=== PATIENT | female | born 1960 | race Caucasian/White ===

== ENCOUNTER 2020-05-25 09:05 | Outpatient (CLI) | payer OTHER, SELFPAY | END 2020-05-25 09:06 | disposition home or self-care (01) | LOC: ANHCOVIDVC 09:05 | PROVIDERS: PCP Family Medicine | DX: Z23 Encounter for immunization (principal) | CPT/HCPCS: 0001A; 91300 ==

== ENCOUNTER 2020-06-15 09:01 | Outpatient (CLI) | payer OTHER, SELFPAY | END 2020-06-15 09:02 | disposition home or self-care (01) | LOC: ANHCOVIDVC 09:01 | PROVIDERS: PCP Family Medicine | DX: Z23 Encounter for immunization (principal) | CPT/HCPCS: 0002A; 91300 ==

== ENCOUNTER 2020-08-28 07:12 | Outpatient (CLI) | payer OTHER, SELFPAY ==
[2020-08-28 07:50] LABS: Alanine Aminotransferase 29 U/L (4-35); Alkaline Phosphatase 46 U/L (38-126); Anion Gap 6 mmol/L (8-16); Aspartate Amino Transferase 31 U/L (14-36); Bilirubin,Total 0.4 mg/dL (0.2-1.3); Blood Urea Nitrogen 17 mg/dL (7-17); Calcium 9.1 mg/dL (8.4-10.2); Carbon Dioxide 28 mmol/L (22-30); Chloride 101 mmol/L (98-107); Cholesterol 231 mg/dL (0-200); Estimated Glomerular Filt Rate > 60; Glucose 99 mg/dL (65-105); HDL Direct 82 mg/dL; Potassium 4.2 mmol/L (3.4-5.0); Sodium 135 mmol/L (137-145); Triglycerides 40 mg/dL (<150)
[2020-08-28 08:01] LABS: LDL Cholesterol Direct 97 mg/dL
== END 2020-08-28 07:13 | disposition home or self-care (01) ==
PROVIDERS: PCP Family Medicine; Visit Provider Family Medicine
DX: E78.5 Hyperlipidemia, unspecified (principal)
CPT/HCPCS: 36415; 80053; 80061

== ENCOUNTER 2020-12-14 17:23 | Outpatient (CLI) | payer OTHER, SELFPAY ==
--- NOTE | ~2020-12-14 | XR_ITS ---
XR_CERV2-3V_CR DATE: 12/14/2020 17:41 INDICATION: Neck pain for 3 weeks, radiating to right shoulder. TECHNIQUE: AP, open-mouth, lateral views COMPARISON: None FINDINGS: There is straightening of the cervical spine. There is minimal dextroscoliosis. There is minimal anterolisthesis at C3-4. There is moderately severe degenerative disc disease and approximately 2.4 mm anterolisthesis at C4-5 . There is severe degenerative disc disease at C5-6. There is moderately severe degenerative disc disease at C6-7. There is uncovertebral joint spurring in the mid and lower cervical spine, particularly on the left a t C4-5 and bilaterally at C5-6 and C6-7. C1 and C2 are normally aligned and the odontoid process is intact. No fracture or dislocation or lock ed facet or prevertebral soft tissue swelling is detected. IMPRESSION: Straightening and minimal dextro scoliosis Approximately 2.4 mm anterolisthesis and severe degenerative disc disease at C4-5 Severe degenerative disc disease at C5-6 Moderately prominent degenerative disc disease at C6-7 Uncovertebral joint spurring in the mid and lower cervical spine Reviewed, dictated and finalized at Location A. Reviewed, dictated and finalized at location B. IMPRESSION: Straightening and minimal dextro scoliosis Approximately 2.4 mm anterolisthesis and severe degenerative disc disease at C4 -5 Severe degenerative disc disease at C5-6 Moderately prominent degenerative disc disease at C6-7 Uncovertebral joint spurring in the mid and lower cervical spine
== END 2020-12-14 17:24 | disposition home or self-care (01) ==
LOC: ANHIMG 17:25
PROVIDERS: PCP Family Medicine; Visit Provider Family Medicine
DX: M50.322 Other cervical disc degeneration at C5-C6 level (principal); M50.321 Other cervical disc degeneration at C4-C5 level; M50.323 Other cervical disc degeneration at C6-C7 level
CPT/HCPCS: 72040

== ENCOUNTER 2020-12-23 08:25 | Outpatient (CLI) | payer OTHER, SELFPAY ==
--- NOTE | ~2020-12-23 | MR_ITS ---
EXAMINATION: MR cervical spine wo con EXAM DATE: 12/23/2020 09:14 INDICATION: M54.12 - Radiculopathy, cervical region . TECHNIQUE: Multi-sequential, multiplanar MR images of the cervical spine were obtained without contra st. Axial T2, axial T2 MERGE sequence. Sagittal T1, T2, T2 fat saturation images also obtained. Th ere is no prior study for comparison. FINDINGS: There is 4 mm anterolisthesis C4 on C5, 2 mm retrolisthesis C5 on C6. The spinal cord sign al intensity and intrinsic morphology is normal. Cervicomedullary junction is normal in appearance. T here is moderate to severe loss of the disc height at C4-5, 5-6, mild to moderate at C6-7. There are no suspicious marrow signal abnormalities. Paraspinal soft tissue is unremarkable. Level by level evaluation: C2-C3: Disc does not extend beyond the endplate margin. Uncovertebral joint arthropathy: None. Facet joint arthropathy: Mild bilateral. Neural foraminal stenosis: No stenosis. Central canal stenosis: No stenosis. C3-C4: Disc does not extend beyond the endplate margin. Uncovertebral joint arthropathy: Mild bilateral. Facet joint arthropathy: Moderate right, mild to moderate left. Neural foraminal stenosis: Mild left. Central canal stenosis: No stenosis. C4-C5: There is a mild to moderate diffuse disc bulge. Uncovertebral joint arthropathy: Moderate to severe left, mild to moderate right. Facet joint arthropathy: Moderate to severe left, mild to moderate right. Neural foraminal stenosis: Moderate to severe left, moderate right. Central canal stenosis: Mild. C5-C6: There is a mild diffuse disc bulge. Uncovertebral joint arthropathy: Moderate bilateral. Facet joint arthropathy: Mild to moderate right, mild left. Neural foraminal stenosis: Moderate bilateral. Central canal stenosis: Mild. C6-C7: There is a mild diffuse disc bulge. Uncovertebral joint arthropathy: Mild to moderate left, mild right. Facet joint arthropathy: Mild bilateral. Neural foraminal stenosis: Mild bilateral. Central canal stenosis: Mild. C7-T1: There is a mild diffuse disc bulge. Uncovertebral joint arthropathy: Mild bilateral. Facet joint arthropathy: Mild bilateral. Neural foraminal stenosis: No stenosis. Central canal stenosis: No stenosis. IMPRESSION: 1. Midcervical subluxations and neural foraminal stenosis as detailed above. Reviewed, dictated and finalized at location A.
== END 2020-12-23 08:26 | disposition home or self-care (01) ==
LOC: ANHIMG 08:26
PROVIDERS: PCP Family Medicine; Visit Provider Family Medicine
DX: M54.12 Radiculopathy, cervical region (principal)
CPT/HCPCS: 72141

== ENCOUNTER 2021-02-13 07:30 | Outpatient (RCR) | payer OTHER, SELFPAY ==
--- NOTE | 2021-01-17 17:54 | PTOPEVAL ---
PHYSICAL THERAPY EVALUATION Thank you for referring Homa Cole to [facility].? The patient is scheduled to be seen for therapy? 1-2x/week for 4 weeks. Please review, sign, date and return this plan of care JOSE. I agree with and certify that the following plan of care is medically necessary. Referring Physician Date Attending Provider: ARLEY Michael Evaluation Diagnosis cervical spine pain with right UE numbness Onset acute on chronic Subjective Information Has chronic neck pain that she Query Text:As Reported By Patient/ has had chronically. She had Family a lot of neck and head injuries and falls as she was growing up. More recently she was pulled by her dog and thinks that may have caused a flare up. She is now expericning right UE numbness and having difficulty gripping. x-rays and MRIs show degeneration and arthritic changes. reports numbness in the UE about every day of the week. States that stress and work increase the numbness in her right UE and chiropractor, muscle relaxors, and predisone decrease the symptoms. States she also does stretches. 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
--- NOTE | 2021-01-28 16:57 | PCPTNOTE ---
late note for 01/23/2021: manual therapy performed STM to cervical musculature -suboccipital release -right UE median nerve glides -prone: posterior-anterior mobilizations to upper thoracic spine and ribs.
--- NOTE | 2021-02-13 08:00 | PTOPEVAL ---
PHYSICAL THERAPY DISCHARGE NOTE Thank you for referring Homa Cole to [facility].? Please review, sign, date and return this plan of care JOSE. I agree with and certify that the following plan of care is medically necessary. Referring Physician Date Attending Provider: Indu Fraser, ARLEY Discharge Diagnosis cervical spine pain with right UE numbness Onset acute on chronic Subjective Information States that the numbness in Query Text:As Reported By Patient/ her right hand has gone away. Family States that she is feeling better but has stiffness in the neck; has flare ups of neck. She states that she is not sure how much the stretches help the pain but they do help remind her to have good posture. Self Report Pain Assessment Right Spine, Cervical Reported Pain Level 2 Pain Description Spasms,Tightness Pain Frequency Chronic,Continuous Other Pain Aggravating Factors sitting at desk, working on [employer] Pain Behaviors Anxious Pain Score Pain Score 2: Self Report Interventions Used Interventions Used By Clinicians Exercise,Manual Therapy Techniques Pain Relief Interventions Used By Chiropractic,Ice,Inactivity/ Patient Rest Cervical and Lumbar ROM Cervical ROM Cervical Flexion (0-60) 45 Query Text:Active in Degrees Cervical Extension (0-70) 65 Query Text:Active in Degrees Cervical Rotation Right (0-90) 65 Query Text:Active in Degrees Cervical Rotation Left (0-90) 65 Query Text:Active in Degrees Cervical ROM Comments pinching at base of neck has reduced, it is not as bad. 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
== END 2021-02-13 08:56 | disposition home or self-care (01) ==
LOC: ANHPT 07:30
PROVIDERS: PCP Family Medicine; Visit Provider Nurse Practitioner Family
DX: M47.812 Spondylosis without myelopathy or radiculopathy, cervical region (principal); M54.2 Cervicalgia
CPT/HCPCS: 97110; 97140; 97162

== ENCOUNTER 2021-05-30 17:24 | Outpatient (CLI) | payer OTHER, SELFPAY ==
--- NOTE | ~2021-05-30 | MM_ITS ---
EXAMINATION: MM screening jj BI w brandon HISTORY: Screening mammogram TECHNIQUE: Craniocaudal and mediolateral oblique 3-D tomosynthesis images were obtained and synthetic 2-D images were generated. CAD analysis was submitted and interpreted. COMPARISON: No prior mammogram is available for comparison at this institution. BREAST PARENCHYMAL COMPOSITION: The breasts are heterogeneously dense, which may obscure small masses . FINDINGS: RIGHT BREAST: There is a focal asymmetry in the middle third of the upper outer quadrant of the breas t 5 cm from the nipple. LEFT BREAST: An asymmetry is present in the posterior third of the breast in line with the nipple axi s on the craniocaudal view. IMPRESSION: 1. Bilateral breast findings as described above. 2. Additional mammographic views and possible breast ultrasound are recommended. BI-RADS Category 0: Incomplete: Needs additional imaging evaluation. Reviewed, dictated and finalized at location A. IMPRESSION: 1. Bilateral breast findings as described above. 2. Additional mammographic views and possible breast ultrasound are recommended . BI-RADS Category 0: Incomplete: Needs additional imaging evaluation.
== END 2021-05-30 17:25 | disposition home or self-care (01) ==
PROVIDERS: PCP Family Medicine; Visit Provider Family Medicine
DX: Z12.31 Encounter for screening mammogram for malignant neoplasm of breast (principal); R92.8 Other abnormal and inconclusive findings on diagnostic imaging of breast
CPT/HCPCS: 77063; 77067

== ENCOUNTER 2021-06-11 11:48 | Outpatient (CLI) | payer OTHER, SELFPAY ==
--- NOTE | ~2021-06-11 | MM_ITS ---
EXAMINATION: MM diagnostic jj BI w brandon HISTORY: Focal asymmetry of the right breast and left breast asymmetry on screening mammogram TECHNIQUE: Additional 3-D tomosynthesis images of the breasts were performed and synthetic 2-D images were generated. CAD analysis was submitted and interpreted. COMPARISON: 05/30/2021 FINDINGS: There is a return to baseline fibroglandular appearance with spot compression of the breast s in the areas questioned on screening mammogram. IMPRESSION: 1. No mammographic evidence of malignancy. 2. Recommend routine screening mammography in one year. BI-RADS Category 1: Negative Reviewed, dictated and finalized at location A.
== END 2021-06-11 11:49 | disposition home or self-care (01) ==
LOC: ANHIMG 11:49
PROVIDERS: PCP Family Medicine; Visit Provider Nurse Practitioner Family
DX: N63.10 Unspecified lump in the right breast, unspecified quadrant (principal); N63.20 Unspecified lump in the left breast, unspecified quadrant; R92.8 Other abnormal and inconclusive findings on diagnostic imaging of breast
CPT/HCPCS: 77062; 77066; G0279

== ENCOUNTER 2021-07-10 07:57 | Outpatient (CLI) | payer OTHER, SELFPAY ==
[2021-07-10 08:53] LABS: Hematocrit 39.1 % (37.0-47.0); Hemoglobin 13.3 g/dL (12.0-15.0); Mean Corpuscular Hemoglobin 30.7 pg (26-34); Mean Corpuscular Volume 90.3 fl (80-100); Platelet Count Result 246 k/mm3 (150-375); Red Blood Count 4.33 M/mm3 (4.2-5.4); Red Cell Distribution Width 12.2 % (11.5-14.5); White Blood Count 4.7 K/mm3 (4.5-10.0)
[2021-07-10 08:57] LABS: Add Urine Microscopic? YES; Appearance Urine Clear (Clear); Bacteria Urine Trace /hpf; Bilirubin Urine Negative (Negative); Blood Urine Negative (Negative); Color Urine Yellow (Yellow); Glucose Urine UA Negative (Negative); Ketones Urine Negative (Negative); Leukocyte Esterase Ur Trace LEU/UL (NEGATIVE); Mucus Urine Rare /lpf; Nitrate Urine Negative (Negative); Protein Urine Negative (Negative); RBC Urine 0-2 /hpf (0-2); Squamous Epithelial Cell Urine Rare /hpf (Few); Urobilinogen Urine Negative mg/dL (<2.0)
[2021-07-10 09:04] LABS: Alanine Aminotransferase 32 U/L (4-35); Alkaline Phosphatase 53 U/L (38-126); Anion Gap 3 mmol/L (8-16); Aspartate Amino Transferase 34 U/L (14-36); Bilirubin,Total 0.4 mg/dL (0.2-1.3); Blood Urea Nitrogen 11 mg/dL (7-17); Calcium 8.3 mg/dL (8.4-10.2); Carbon Dioxide 30 mmol/L (22-30); Chloride 97 mmol/L (98-107); Cholesterol 197 mg/dL (0-200); Estimated Glomerular Filt Rate > 60; Glucose 97 mg/dL (65-110); HDL Direct 61 mg/dL; Potassium 3.7 mmol/L (3.4-5.0); Sodium 130 mmol/L (137-145); Triglycerides 44 mg/dL (<150)
[2021-07-10 09:15] LABS: LDL Cholesterol Direct 88 mg/dL
== END 2021-07-10 07:58 | disposition home or self-care (01) ==
LOC: ANHLAB 07:59
PROVIDERS: PCP Family Medicine; Visit Provider Family Medicine
DX: Z00.00 Encounter for general adult medical examination without abnormal findings (principal); E78.5 Hyperlipidemia, unspecified; R53.83 Other fatigue
CPT/HCPCS: 36415; 80053; 80061; 81001; 84443; 85027

== ENCOUNTER 2022-07-14 01:55 | Day surgery (SDC) | payer OTHER, SELFPAY ==
[2022-07-03 10:45] VITALS: BMI 26.2
[2022-07-14 08:48] VITALS: BP 116/77; PULSE 63; RESP 18; TEMP 36.2; O2SAT 100
--- NOTE | 2022-07-14 09:03 | PM.HPGS ---
History of Present Illness History of Present Illness Consent: Risks, benefits, and alternatives have been discussed and questions answered. Patient agrees to proceed with procedure. Chief complaint: neoplasm screening,dysphagia Narrative: Homa Cole is a 62 year old female Presents for both colonoscopy and EGD on the request of Willis JORDAN. patient desires neoplasia screening colonoscopy. Her current weight appetite bowel movements are normal. She denies abdominal pain. She has had no bleeding. Patient does report some dysphagia. She states that solid foods will cause her to choke. She will cough and have difficulty swallowing. Occasionally food will catch high in the throat her upper chest. Patient reports in the past she has had esophageal dilatation at a different institution. Patient currently maintained on pantoprazole 20mg p.o. daily. Patient denies any abdominal pain or heartburn. Review of Systems Review of Systems: Review of systems noncontributory. [facility] Past Medical History Medical History Allergies Anxiety Arthritis Asthma GERD (gastroesophageal reflux disease) Headache, migraine Surgical History Surgical History History of tonsillectomy History of tubal ligation Hx of cholecystectomy Family History Family History Father Alcoholism Mother Depression Anxiety Thyroid disease Son Asthma Grandparent Hypertension Anxiety Depression Heart disease Social History Social History Social History: Smoking status: Never smoker Second hand tobacco smoke exposure: No Alcohol intake: current Alcohol use details: rarely Substance use: never Substance use type: does not use Lack of Transportation: No Lack of Food: Never True Current Housing: I Have Housing Concerned About Future Housing: No Difficulty Paying Gas/Electric Bills: No Difficulty Paying for Meds: No Currently Unemployed: No Education: Trade/Vocational Certificate Difficulty w/ Childcare or Family Care: No Living arrangements: with family Occupation/Education: occupation Additional occupation/education comments: [employer] Gender identity (if verbalized by the patient): Female Sexual Orientation (if Verbalized by the Patient): Straight or Heterosexual Spiritual care concerns: No Agree to blood products: Yes Meds Home Medications and Allergies Home Medications Medication Instructions Recorded Confirmed Type ascorbate calcium (vitamin C) 500 500 mg PO DAILY 05/14/20 07/03/22 History mg tablet cranberry 400 mg capsule 400 mg PO DAILY 05/14/20 07/03/22 History multivitamin (Daily Multi-Vitamin 1 tablet PO DAILY 05/14/20 07/03/22 History tablet) omega-3 fatty acids 1,000 mg 1,000 mg PO DAILY 05/14/20 07/03/22 History capsule (Fish Oil Concentrate) alprazolam 0.25 mg tablet 0.25 mg PO QHS PRN sleep #30 tabs 02/21/22 07/03/22 Rx albuterol sulfate 90 mcg/actuation 1 puff inhalation Q4-6H PRN 04/22/22 07/03/22 Rx aerosol inhaler shortness of breath or wheezing #8.5 grams pantoprazole 20 mg tablet,delayed 20 mg PO QAM #90 tabs 04/22/22 07/03/22 Rx release meloxicam 7.5 mg tablet See Rx Instructions .Route 05/12/22 07/03/22 Rx .COMPLEX #180 tabs montelukast 10 mg tablet 10 mg PO DAILY #90 tabs 05/12/22 07/03/22 Rx sertraline 100 mg tablet 150 mg PO DAILY #45 tabs 05/12/22 07/03/22 Rx azelastine 137 mcg (0.1 %) nasal 1 spray intranasal Q12H #30 mL 07/01/22 07/03/22 Rx spray aerosol fluticasone fur. 100 mcg-umeclid 1 ea inhalation BID 07/03/22 07/03/22 History 62.5 mcg-vilant 25 mcg inhalat.powder (Trelegy Ellipta) Allergies Allergy/AdvReac Type Severity Reaction Status Date / Time Davis
[2022-07-14] MEDS: LACTATED RINGERS 1,000 ML 150 ML IV CONT (09:15)
--- NOTE | 2022-07-14 09:40 | WPDANESEPPF ---
Anes - Initial Pre Proc Eval Procedure: Operation Date: 07/14/22 10:00 Proposed Procedures p Esophagogastroduodenoscopy & Screening Colonoscopy - Eliseo Garcia MD Date/Time: 07/14/22 09:40 Surgeon: Eliseo Garcia MD Pre Op Diagnosis: neoplasm screening,dysphagia Patient Data Age: 62 Gender: F Height: 1.57 m Weight: 66.7 kg Last Vital Signs Temp 97.2 F L 07/14/22 08:48 Pulse 63 07/14/22 08:48 Resp 18 07/14/22 08:48 BP 116/77 07/14/22 08:48 Pulse Ox 100 07/14/22 08:48 O2 Del Method Room Air 07/14/22 08:48 Allergies Allergy/AdvReac Type Severity Reaction Status Date / Time Sulfa (Sulfonamide Allergy Severe Anaphylaxis Verified 07/14/22 08:44 Antibiotics) xylitol Allergy Mild Unknown Verified 07/14/22 08:44 Bretzi Allergy Intermediate SOB Uncoded 07/14/22 08:44 Home Medications Medication Instructions Recorded Confirmed Type ascorbate calcium (vitamin C) 500 500 mg PO DAILY 05/14/20 07/03/22 History mg tablet cranberry 400 mg capsule 400 mg PO DAILY 05/14/20 07/03/22 History multivitamin (Daily Multi-Vitamin 1 tablet PO DAILY 05/14/20 07/03/22 History tablet) omega-3 fatty acids 1,000 mg 1,000 mg PO DAILY 05/14/20 07/03/22 History capsule (Fish Oil Concentrate) alprazolam 0.25 mg tablet 0.25 mg PO QHS PRN sleep #30 tabs 02/21/22 07/03/22 Rx albuterol sulfate 90 mcg/actuation 1 puff inhalation Q4-6H PRN 04/22/22 07/03/22 Rx aerosol inhaler shortness of breath or wheezing #8.5 grams pantoprazole 20 mg tablet,delayed 20 mg PO QAM #90 tabs 04/22/22 07/03/22 Rx release meloxicam 7.5 mg tablet See Rx Instructions .Route 05/12/22 07/03/22 Rx .COMPLEX #180 tabs montelukast 10 mg tablet 10 mg PO DAILY #90 tabs 05/12/22 07/03/22 Rx sertraline 100 mg tablet 150 mg PO DAILY #45 tabs 05/12/22 07/03/22 Rx azelastine 137 mcg (0.1 %) nasal 1 spray intranasal Q12H #30 mL 07/01/22 07/03/22 Rx spray aerosol fluticasone fur. 100 mcg-umeclid 1 ea inhalation BID 07/03/22 07/03/22 History 62.5 mcg-vilant 25 mcg inhalat.powder (Trelegy Ellipta) Patient hx anesthesia problems: none Family hx anesthesia problems: none Results Review: All pre-operative results and documents have been reviewed as part of the pre-operative evaluation. [facility] Past Medical History Medical History Allergies Anxiety Arthritis Asthma GERD (gastroesophageal reflux disease) Headache, migraine Surgical History Surgical History History of tonsillectomy History of tubal ligation Hx of cholecystectomy Family History Family History Father Alcoholism Mother Depression Anxiety Thyroid disease Son Asthma Grandparent Hypertension Anxiety Depression Heart disease Social History Social History Social History: Smoking status: Never smoker Second hand tobacco smoke exposure: No Alcohol intake: current Alcohol use details: rarely Substance use: never Substance use type: does not use Lack of Transportation: No Lack of Food: Never True Current Housing: I Have Housing Concerned About Future Housing: No Difficulty Paying Gas/Electric Bills: No Difficulty Paying for Meds: No Currently Unemployed: No Education: Trade/Vocational Certificate Difficulty w/ Childcare or Family Care: No Living arrangements: with family Occupation/Education: occupation Additional occupation/education comments: [employer] Gender identity (if verbalized by the patient): Female Sexual Orientation (if Verbalized by the Patient): Straight or Heterosexual Spiritual care concerns: No Agree to blood products: Yes Anes - Eval Final PreProcedure Day of Procedure 07/14/22 09:40 Patient weight: normal
--- NOTE | 2022-07-14 10:02 | SUR.OPER ---
EGD: START-955, END-957. COLONOSCOPY: START-1002 , END-1012
[2022-07-14 10:17] VITALS: BP 85/46; PULSE 71; RESP 17; O2SAT 100
[2022-07-14 10:27] VITALS: BP 88/45; PULSE 67; RESP 23; O2SAT 100
[2022-07-14 10:37] VITALS: BP 117/73; PULSE 67; RESP 13; O2SAT 100
== END 2022-07-14 10:53 | disposition home or self-care (01) ==
PROVIDERS: PCP Physician Assistant; Visit Provider Internal Medicine Gastroenterology
PROC: 0DJ08ZZ Inspection of Upper Intestinal Tract, Via Natural or Artificial Opening Endoscopic (ICD-10-PCS; CPT 43235; principal; 2022-07-14 10:00)
DX: Z12.11 Encounter for screening for malignant neoplasm of colon (principal); D12.2 Benign neoplasm of ascending colon; R13.10 Dysphagia, unspecified; J45.909 Unspecified asthma, uncomplicated; K21.9 Gastro-esophageal reflux disease without esophagitis; F41.9 Anxiety disorder, unspecified; Z79.51 Long term (current) use of inhaled steroids
CPT/HCPCS: 45385; 43450; 43235; 88305; J2370; J2704; J7120

== ENCOUNTER 2022-07-22 14:23 | Outpatient (CLI) | payer OTHER, SELFPAY ==
--- NOTE | ~2022-07-22 | CT_ITS ---
CT Scan of the Chest without Contrast: Clinical Indication: Shortness of breath Technique: Contiguous sections were acquired throughout the chest without intravenous contrast. Dose reduction technique was used on this scan by utilizing automated exposure control and iterative recon struction technique. The dose-length product (DLP) was 118.74 mGy-cm. Findings: There is no evidence of any significant mediastinal, hilar or axillary lymphadenopathy. The mediastin al soft tissues appear normal. There is no evidence of pleural or pericardial effusion. There is mild scarring at the right middle lobe. There is probable somewhat nodular scarring at the a nterior inferior left lower lobe (axial images 71-79). There is a 9 mm irregular nodule in the superi or segment left lower lobe (axial image 44).. Images through the upper abdomen reveal no abnormalities. Impression: 9 mm irregular nodule superior segment left lower lobe. This is indeterminate. Tissue sampling should be considered to establish a histologic diagnosis, though this may be difficult given the small size . PET scan or short-term follow-up CT in 1-3 months would be an alternative considerations. Areas of suspected scarring in the right middle lobe and anteroinferior left lower lobe, as noted abo ve. Reviewed, dictated and finalized at location . Impression: 9 mm irregular nodule superior segment left lower lobe. This is indeterminate. Tissue sampling should be considered to establish a histologic diagnosis, pedro urrutia this may be difficult given the small size. PET scan or short-term follow-up CT in 1-3 months would be an alternative considerations. Areas of suspected scarring in the right middle lobe and anteroinferior left lo wer lobe, as noted above.
--- NOTE | 2022-07-23 11:02 | WPDPFTINT ---
PFT Procedure Performed PFT Procedure Performed Spirometry with Pre/Post Bronchodilator Plethysmography (Lung Vol) Diffusing Cap (DLCO) Flow Vol Loop PFT Interpretation This is a pulmonary function test with pre and post-bronchodilator spirometry, plethysmography and diffusing capacity. The test was performed and results interpreted in accordance with the 2019 and 2005 ATS/ERS Task Force guidelines respectively using the Global Lung Function Initiative-2012 reference equations. Patient demonstrated good effort and cooperation. Reproducibility criteria were met. The quality of the pre bronchodilator spirometry maneuver was Grade A and post bronchodilator spirometry maneuver was Grade A. Findings: Spirometry: The contour the inspiratory and expiratory flow tracing are normal. The pre bronchodilator FVC is 3.57 L, 124% predicted. The pre bronchodilator FEV1 is 2.62 L, 116% predicted. The pre bronchodilator FEV1: FVC ratio 73%. Post bronchodilator FVC is 3.56 L, representing no change. The post bronchodilator FEV1 is 2.78 L, representing a 6% increase. The post bronchodilator FEV1: FVC ratio is 78%. Plethysmography: The total lung capacity is 5.59 L, 118% predicted. The functional residual capacity is 3.01 L, 113% predicted. The residual volume is 2.02 L, 105% predicted. Diffusion capacity: The diffusing capacity unadjusted for hemoglobin and carboxyhemoglobin is 20.9, 102% predicted. The diffusing capacity adjusted for alveolar volume is 5.20, 115% predicted. Impression: The spirometry is normal without evidence of an obstructive abnormality. There is no significant improvement after inhaling a single dose of albuterol. The lung volumes are normal. The diffusing capacity is normal. There are no prior studies for comparison
== END 2022-07-22 14:24 | disposition home or self-care (01) ==
PROVIDERS: PCP Physician Assistant; Visit Provider Physician Assistant
DX: J45.909 Unspecified asthma, uncomplicated (principal); R06.02 Shortness of breath; R91.1 Solitary pulmonary nodule
CPT/HCPCS: 71250; 94060; 94726; 94729

== ENCOUNTER 2022-08-26 09:01 | Outpatient (CLI) | payer OTHER, SELFPAY ==
--- NOTE | ~2022-08-26 | PE_ITS ---
EXAMINATION: PET skull to mid thigh DATE: 08/26/2022 11:16 INDICATION: Solitary pulmonary nodule TECHNIQUE: Blood glucose level was 96 mg/dL. 9.951 mCi of 18-fluorodeoxyglucose (18-FDG) was administ ered i.v. Low dose computed tomography (CT) images were acquired from the base of the brain to the pr oximal thighs for attenuation correction and anatomic localization. Positron emission tomography (PET ) images were acquired in the same distribution beginning 62 minutes after injection. The dose-length product (DLP) was 421.98 mGy-cm. COMPARISON: CT, 07/22/2022 FINDINGS: Head/neck: No abnormal FDG uptake is identified. FDG uptake in the extraocular muscles and neck muscl es is without suspicious CT correlate and likely physiologic. There is near complete opacification of the left maxillary sinus. Chest: The previously described nodule in the superior segment of the left lower lobe is no longer id entified, consistent with resolving infection or inflammation. There are multiple new small nodules i n the right lung which measure up to 11 mm and demonstrate mild FDG uptake, also likely infectious or inflammatory given the short interval between examinations. There is a stable 8 mm basilar nodule of the left lower lobe with mild FDG uptake and associated peripheral atelectasis. No pleural effusion or pneumothorax. No pathologically enlarged thoracic lymph nodes are identified. The heart size is no rmal. Abdomen/pelvis/proximal thighs: Physiologic FDG activity is present in the bowel and urinary tract. N o abnormal FDG uptake is identified. The gallbladder is surgically absent. The liver, spleen, pancrea s, and adrenal glands are normal. The kidneys are unremarkable. No pathologically enlarged abdominal or pelvic lymph nodes are identified. No free intraperitoneal gas or evidence of bowel obstruction. A large volume of colonic stool is present. Musculoskeletal: No abnormal FDG uptake is identified. IMPRESSION: 1. Resolved nodule in the superior segment of left lower lobe and new nodules in the right lung, most consistent with infection/inflammation. 2. Unchanged basilar nodule in the left lower lobe with mild FDG uptake, possibly infectious or infla mmatory. Follow-up CT in three months is recommended. Reviewed, dictated and finalized at location A. IMPRESSION: 1. Resolved nodule in the superior segment of left lower lobe and new nodules i n the right lung, most consistent with infection/inflammation. 2. Unchanged basilar nodule in the left lower lobe with mild FDG uptake, possib ly infectious or inflammatory. Follow-up CT in three months is recommended.
[2022-08-26 09:39] LABS: Glucose Point of Care 96 mg/dl (65-105)
== END 2022-08-26 09:02 | disposition home or self-care (01) ==
LOC: ANHIMG 09:03
PROVIDERS: PCP Physician Assistant; Visit Provider Physician Assistant
DX: R91.1 Solitary pulmonary nodule (principal)
CPT/HCPCS: 78815; A9552

== ENCOUNTER 2022-11-26 14:41 | Outpatient (CLI) | payer OTHER, SELFPAY ==
--- NOTE | ~2022-11-26 | CT_ITS ---
EXAMINATION:CT diagnostic chest wo con DATE: 11/26/2022 15:04 INDICATION: Solitary pulmonary nodule. TECHNIQUE: Computed tomography (CT) of the chest was performed without intravenous contrast. Automate d exposure control and iterative reconstruction technique were employed. The dose-length product (DLP ) was 56.17 mGy-cm. COMPARISON: Chest CT 07/23/2022, PET/CT 08/26/2022 FINDINGS: There are centrilobular nodules and tree-in-bud opacities in right upper lobe and right mid dle lobe. There are groundglass opacities in the lower lobes. There is mild atelectasis in the inferi or lungs. No pleural effusion. The heart size is normal. No pericardial effusion. There are changes o f cholecystectomy. There is severe thoracic spondylosis. IMPRESSION: 1. Multifocal lung disease with worsening from 07/22/2022, consistent with pneumonia. Reviewed, dictated and finalized at location A. IMPRESSION: 1. Multifocal lung disease with worsening from 07/22/2022, consistent with pneumo delfino.
== END 2022-11-26 14:42 | disposition home or self-care (01) ==
PROVIDERS: PCP Physician Assistant; Visit Provider Physician Assistant
DX: R91.8 Other nonspecific abnormal finding of lung field (principal)
CPT/HCPCS: 71250

== ENCOUNTER 2022-12-02 11:09 | Outpatient (CLI) | payer OTHER, SELFPAY ==
--- NOTE | ~2022-12-02 | XR_ITS ---
EXAMINATION: XR ankle LT min 3V DATE: 12/02/2022 11:28 INDICATION: Left ankle pain TECHNIQUE: Anteroposterior, lateral, mortise, and additional oblique view of the ankle were obtained. COMPARISON: None. FINDINGS: Bone alignment is normal. There is no fracture. There is lateral soft tissue swelling of th e lateral malleolus. IMPRESSION: 1. No acute osseous abnormality. Reviewed, dictated and finalized at location L.
== END 2022-12-02 11:10 | disposition home or self-care (01) ==
PROVIDERS: PCP Physician Assistant; Visit Provider Physician Assistant
DX: M25.572 Pain in left ankle and joints of left foot (principal)
CPT/HCPCS: 73610

== ENCOUNTER 2023-01-30 08:50 | Outpatient (CLI) | payer OTHER, SELFPAY ==
--- NOTE | ~2023-01-30 | CT_ITS ---
CT Scan of the Chest without Contrast: Clinical Indication: Solitary pulmonary nodule Technique: Contiguous sections were acquired throughout the chest without intravenous contrast. Dose reduction technique was used on this scan by utilizing automated exposure control and iterative recon struction technique. The dose-length product (DLP) was 134.19 mGy-cm. COMPARISON: 11/26/2022 Findings: There is no evidence of any significant mediastinal, hilar or axillary lymphadenopathy. The mediastin al soft tissues appear normal. There is no evidence of pleural or pericardial effusion. There are focal areas of tree-in-bud opacity, predominantly peripherally in the right upper and right middle lobes. Images through the upper abdomen reveal no abnormalities. Impression: Focal areas of peripheral tree-in-bud opacity, predominantly in the right upper and middle lobes, sim ilar to prior exam. Findings are again suspicious for small airways infectious process, such as IVONNE i nfection. Reviewed, dictated and finalized at [facility]. 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 Findings are again suspicious for sma ll airways infectious process, such as IVONNE infection.
== END 2023-01-30 08:51 | disposition home or self-care (01) ==
PROVIDERS: PCP Physician Assistant; Visit Provider Physician Assistant
DX: R91.1 Solitary pulmonary nodule (principal); J18.9 Pneumonia, unspecified organism
CPT/HCPCS: 71250

== ENCOUNTER 2023-06-12 09:17 | Outpatient (CLI) | payer OTHER, SELFPAY ==
--- NOTE | ~2023-06-12 | XR_ITS ---
EXAM: XR hand BI arthritis min 3V DATE: 06/12/2023 09:32 HISTORY: M79.641 - Pain in right hand, GENERAL JOINT PAIN, NO INJURY . COMPARISON: None available. FINDINGS: Mildly decreased mineralization. No fracture or dislocation. No lytic or blastic lesion. S cattered arthritic changes in the hand and wrist, typical of osteoarthritis, severe at the bilateral trapeziometacarpal joints, moderate in the bilateral triscaphe joints, and mild in multiple MCP and i nterphalangeal joints. No erosion or periosteal change. Soft tissues within normal limits. IMPRESSION: Polyarticular osteoarthritis, severe in the bilateral trapeziometacarpal joints. Reviewed, dictated and finalized at location K. IMPRESSION: Polyarticular osteoarthritis, severe in the bilateral trapeziometac arpal joints.
== END 2023-06-12 09:18 | disposition home or self-care (01) ==
LOC: ANHIMG 09:18
PROVIDERS: PCP Physician Assistant; Visit Provider Physician Assistant
DX: M19.041 Primary osteoarthritis, right hand (principal); M19.042 Primary osteoarthritis, left hand
CPT/HCPCS: 73130

== ENCOUNTER 2023-09-14 08:30 | Outpatient (RCR) | payer OTHER, SELFPAY ==
--- NOTE | 2023-07-20 12:08 | OTOPEVAL1 ---
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 She reports severe, sharp pain in the thumb with any pinching tasks or opening a jar or container. She presents today wearing a prefabricated thumb spica on the right and a compression sleeve on the left. She received injections to bilateral 1st CMC joints about 2 weeks ago. She is right handed. Assessment OT Clinical Summary Patient referred to OT with dx of 1st CMC OA. She presents with intact ROM, but pain with ROM and pain with resistive pinching. Discussed immobilization and reviewed immobilization schedule with the different splints she already has. Issued ROM for the wrist and thumb. Continued skilled OT indicated for use of thermal modalities, manual therapy, and progression of therapeutic exercise to facilitate reduced pain and improved functional hand strength. Plan of Care Interventions Therapeutic Exercise,Manual Therapy,Hot Pack/Cold Pack,Paraffin OT Services Indicated Yes Treatment Frequency and 1x/week for 6 visits Duration These treatments will address the objective and functional deficits as defined above. The patient will be advanced safely and appropriately in order for the patient to progress towards his/her prior level of function. Additional exercises will be introduced and as well as a comprehensive home exercise program upon discharge, if needed, ?to ensure carryover of functional gains achieved in the clinic. This treatment plan has been reviewed and agreement upon by the patient.
--- NOTE | 2023-07-20 12:08 | OPREHPOC ---
Outpatient Therapy Plan of Care This is a Multidisciplinary Plan of Care that may contain components documented by all disciplines (PT, OT, and ST.) OT Problem 1 OT Problem #1 Knowledge Deficit OT Goal 1 Goal 1. Patient to be independent with instructed materials. Target Visit 6 OT Problem 2 OT Problem #2 Pain OT Goal 1 Goal 1. Patient to report reduced pain in the right thumb CMC joint to 0/10 at rest and 4/10 or less at worst . Target Visit 6 OT Problem 3 OT Problem #3 Impaired Strength OT Goal 1 Goal 1. Patient to be able to complete blood bank custodian and pinch strengthening with marcum theraputty x5 minutes without pain. 2. Patient to progress to gross wrist strengthening with 2 lb. free weight x10 reps without pain. Target Visit 6
--- NOTE | 2023-08-21 11:32 | OTOPPROG ---
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 She reports she has been able to go without her brace some. Has been able to do some light pinching tasks without as much pain as she was having a month ago. She reports the left thumb is doing well, hardly having pain on this side. Most of her pain is in the right thumb, gets up to 7/10 at worst . This improved from 9/10. On a regular basis she is experiencing 2-3/10 pain on the right thumb. This pain level has remained unchanged. Assessment OT Clinical Summary Patient referred to OT with dx of 1st CMC OA. She has been participating in OT x5 weeks. Progress noted with reduced pain and improved functional pinching. She continues to have pain and inflammation that restricts functional use and she continues to experience 7/10 pain regularly in the right thumb. She has been compliant with HEP, maybe over-doing it at times. Reviewed HEP and discussed being a bit more gentle, respecting pain , etc. Continued skilled OT indicated for use of thermal modalities, manual therapy, and progression of therapeutic exercise to facilitate reduced pain and improved functional hand strength . Plan of Care Interventions Therapeutic Exercise,Manual Therapy,Hot Pack/Cold Pack,Ultrasound,Paraffin OT Services Indicated Yes Treatment Frequency and 1x/week for 4 visits Duration These treatments will address the objective and functional deficits as defined above. The patient will be advanced safely and appropriately in order for the patient to progress towards his/her prior level of function. Additional exercises will be introduced and as well as a comprehensive home exercise program upon discharge, if needed, ?to ensure carryover of functional gains achieved in the clinic. This treatment plan has been reviewed and agreement upon by the patient.
--- NOTE | 2023-08-21 11:33 | OPREHPOC ---
Outpatient Therapy Plan of Care This is a Multidisciplinary Plan of Care that may contain components documented by all disciplines (PT, OT, and ST.) OT Problem 1 OT Problem #1 Knowledge Deficit OT Goal 1 Goal 1. Patient to be independent with instructed materials. ---OT POC UPDATE 08/21/23--- 1. Met, continue as HEP is progressed or changed Target Visit 10 OT Problem 2 OT Problem #2 Pain OT Goal 1 Goal 1. Patient to report reduced pain in the right thumb CMC joint to 0/10 at rest and 4/10 or less at worst . ---OT POC UPDATE 08/21/23--- 1. Not met, continue to treat pain Target Visit 10 OT Problem 3 OT Problem #3 Impaired Strength OT Goal 1 Goal 1. Patient to be able to complete unbundler and pinch strengthening with marcum theraputty x5 minutes without pain. 2. Patient to progress to gross wrist strengthening with 2 lb. free weight x10 reps without pain. ---OT POC UPDATE 08/21/23--- 1. Progressing, not met 2. Progressing, not met Target Visit 10
--- NOTE | 2023-09-14 09:10 | OTOPDC ---
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 She reports she has been able to go without her brace some. Has been able to do some light pinching tasks without as much pain as she was having a month ago. She reports the left thumb is doing well, having 0/10 pain on this side. Most of her pain is in the right thumb, gets up to 4/10 at worst . This improved from 9/10. On a regular basis she is experiencing 2/10 pain on the right thumb. This daily pain level has remained unchanged. She has been utilizing joint protection techniques throughout her day. ROM of bilateral wrists and thumbs remained WFL. She is no longer having sharp pain with thumb opposition to the base of digit V. (R) nursing program manager strength improved from 50 to 60 lbs. (L) nursing program manager strength improved from 62 to 66 lbs. (R) lateral pinch improved from 7 to 9.33 lbs., pain with this assessment reduced from 7/10 to 4/10 (L) lateral pinch improved from 14 to 16 lbs. (R) palmar pinch improved from 6 to 12 lbs., pain with this assessment reduced from 7/10 to 4/10. (L) lateral pinch improved from 12 to 16 lbs. Assessment OT Clinical Summary Patient referred to OT with dx of 1st CMC OA. She has been participating in OT x9 weeks. Progress noted with reduced pain, improved functional pinching for ADLs, and improved knowledge of joint protection techniques as she has incorporated them into everyday tasks. She is no longer having sharp, shooting pain in the right thumb. No pain in the left thumb at rest or with activity. She is currently independent with HEP for CMC stabilization exercises, putty, and wrist strengthening. Reviewed these and recommend she continue to incorporate the HEP into her routine for optimal results. No further skilled OT indicated at this time. Plan of Care OT Services Indicated No
== END 2023-09-22 10:44 | disposition home or self-care (01) ==
LOC: ANHHIOT 08:30
PROVIDERS: PCP Physician Assistant; Visit Provider Plastic Surgery
DX: M18.9 Osteoarthritis of first carpometacarpal joint, unspecified (principal)
CPT/HCPCS: 97018; 97110; 97140; 97165

== ENCOUNTER 2023-10-05 08:00 | Outpatient (RCR) | payer OTHER, SELFPAY ==
--- NOTE | 2023-07-15 17:59 | PTOPEVAL1 ---
Assessment and note entered by Alejandra Young, PT Evaluation Information Assessment Status Evaluation Diagnosis peroneal tendonitis left leg Therapy conditions pain in left ankle left ankle instability weakness Onset November 2022 Subjective Information Has changed to high-top shoes, and has an ankle brace that is a slip on with velcro. Was wearing her brace most of the time with walking at work but recently has been more of a sitting job Over Easter played football on uneven ground and this flared it up. 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 Noticed the whole ankle was puffy. Reported Pain Level Pain Score 2: Self Report Assessment PT Clinical Summary Pt presents with complaints of ankle/foot pain and diagnosis of peroneal tendonitis. Evaluation demo 's tenderness to palpation base of fifth metatarsal, swelling anterior lateral malleolus, decreased gastroc/soleous ROM, decreased dorsiflexion, excessive inversion with lateral talar glide suggestive of ankle instability, poor ankle/foot alignment with pt made make-shift orthotics to improve support, difficulty with toe walking and reports of pain with high level activities and functions. Pt will greatly benefit from physical therapy to address deficits, and improve function with less pain to return to PLOF. Plan of Care Interventions Check Out for Orthotic/Pr,Electrical Stimulation, Gait Training,Hot Pack/Cold Pack,Manual Therapy, Neuro Re-education,Patient/Caregiver Educati, Therapeutic Activities,Therapeutic Exercise,Self- Care/Home Management,Ultrasound,Other Other Interventions taping, phonophoresis, iontophoresis PT Services Indicated Yes Treatment Frequency and 1-2x weekly x 12 visits Duration These treatments will address the objective and functional deficits as defined above. The patient will be advanced safely and appropriately in order for the patient to progress towards his/her prior level of function. Additional exercises will be introduced and as well as a comprehensive home exercise program upon discharge, if needed, ?to ensure carryover of functional gains achieved in the clinic. This treatment plan has been reviewed and agreement upon by the patient.
--- NOTE | 2023-07-15 18:00 | OPREHPOC ---
Outpatient Therapy Plan of Care This is a Multidisciplinary Plan of Care that may contain components documented by all disciplines (PT, OT, and ST.) PT Goal 1 Goal Pt will be independent in HEP Pt will verbalize understanding of diagnosis and prognosis Target Visit 6 PT Problem 2 PT Problem #2 Pain PT Goal 1 Goal Pt will report greatest pain level at 3/10 or less to improve ADLs and activities Target Visit 6 PT Goal 2 Goal Pt will report resolution of pain to return to PLOF Target Visit 12 PT Problem 3 PT Problem #3 Impaired Strength PT Goal 1 Goal Pt will demo improved strength and stability of ankle with toe walking without pain or deficit x 30 ft. Target Visit 12 PT Problem 4 PT Problem #4 Impaired Range of Motion PT Goal 1 Goal Pt will demo increased gastroc and soleous flexibility to allow improved dorsiflexion Target Visit 6 PT Goal 2 Goal Pt will demo active dorsiflexion of 15 degrees with knee flexed and extended Target Visit 12
--- NOTE | 2023-09-04 16:05 | PTOPPROG ---
Assessment and note entered by Alejandra Young, PT Assessment Status Progress Diagnosis peroneal tendonitis left leg Onset November 2022 Subjective Information Pt states she had a few set backs over the past week. She states she rolled her ankle while vacuuming which caused mild swelling and pain. Then 5 days later the ankle gave away again, she felt pain in the Achilles, side of ankle and top of foot. After that incident it was painful to walk but she was able to manage pain with ice and ROM exercises. Assessment PT Clinical Summary Pt presents to physical therapy for a re- evaluation after 10 physical therapy visits. She states that since her last visits she had two incidents where the L ankle gave out . One occurred when vacuuming and the other when stepping onto a door frame, she states the L ankle had mild swelling and it was painful to walk for a few days. Today there is no visible swelling in the L ankle, upon palpation there is palpable tenderness along distal peroneal tendons and on dorsal surface of foot. While walking barefoot on firm surface there are clear deficits such as decreased push off and slow gait due to decrease confidence in L ankle. A mild Trendelenburg pattern was noted and hip strength was assessed with MMT showing 3+/5 strength EDEN in hip extension and abduction. Homa has shown improvements in LLE ROM but strength deficits and gait deviations persist. She was given updated HEP and educated on the anatomy of a ankle sprain. Homa would continue to benefit from skilled physical therapy with a increased focus on ankle isometrics to improve strength and decrease irritation of peroneal tendons, addressing hip strength /stability, and manual therapy to further improve mobility of limited planes. Plan of Care Interventions Check Out for Orthotic/Pr,Electrical Stimulation, Gait Training,Hot Pack/Cold Pack,Manual Therapy, Neuro Re-education,Patient/Caregiver Educati, Therapeutic Activities,Therapeutic Exercise,Self- Care/Home Management,Ultrasound,Other Other Interventions taping, phonophoresis, iontophoresis PT Services Indicated Yes Treatment Frequency and 1x per week for 6 weeks Duration These treatments will address the objective and functional deficits as defined above. The patient will be advanced safely
--- NOTE | 2023-10-12 12:42 | PCPTNOTE ---
Therapy department cancelled pt's appointment today due to lack of authorization
--- NOTE | 2023-10-12 16:32 | PTOPDC ---
Assessment and note entered by Alejandra Young, PT Evaluation Information Assessment Status Discharge - Pt Not Present Diagnosis peroneal tendonitis left leg Assessment PT Clinical Summary Spoke with patient regarding insurance authorization for therapy. Pt also states she has been doing really well, has not had pain in two weeks. Pt states she has her HEP and is comfortable with this. Thus patient will be discharged for completion of POC. Plan of Care PT Services Indicated No
== END 2023-10-13 10:44 | disposition home or self-care (01) ==
LOC: ANHHIPT 08:00
PROVIDERS: PCP Physician Assistant; Visit Provider Orthopaedic Surgery
DX: M76.70 Peroneal tendinitis, unspecified leg (principal)
CPT/HCPCS: 97014; 97035; 97110; 97112; 97116; 97140; 97161; 97530; 97750; G0283